=== PATIENT | male | born 1965 | race Caucasian/White ===

== ENCOUNTER 2017-05-23 16:03 | Emergency (ER) | payer OTHER ==
[~2017-05-23] VITALS: Ht 193 cm; Wt 133.5 kg
[~2017-05-23 16:03] MED LIST: FENO145T26 PO; METH-307 PO; METO100T14 PO; OXYC-57 PO
[2017-05-23 16:10] VITALS: TEMP 37; Ht 193 cm; Wt 133.5 kg
--- NOTE | 2017-05-23 16:32 | EMERGENCY ROOM VISIT NOTE ---
ED Visit Note First contact with patient: 16:20 CHIEF COMPLAINT: Low back pain HISTORY OF PRESENT ILLNESS: This 51-year-old male patient presents to the emergency department via private vehicle accompanied by his complaining of pain in the low back which began yesterday while quickly transitioning out of a chair. The pain was gradual in onset, is now constant and worse with movement. The patient notes the pain as constant in the left low back musculature and a 9/10. The patient has taken [id number] Tylenol and ibuprofen without relief of the pain. He notes shooting pain to his left knee with minimal numbness. There is no weakness of the left leg, numbness or tingling in genital region, bowel or bladder incontinence. There is no abdominal pain. No nausea or vomiting or abdominal pain. No chest pain or shortness of breath. REVIEW OF SYSTEMS: A review of systems was performed with positives and pertinent negatives listed in the history of present illness. All other systems were reviewed and are negative. ALLERGIES: None MEDICATIONS: As noted below PMH: Previous femur fracture SOCIAL HISTORY: patient lives locally and is employed. PHYSICAL EXAM: VITALS: Vitals are noted on the nurse's note and reviewed by myself. Vital signs stable. He is hypertensive, and is to follow-up with his family doctor. GENERAL: 51-year-old male, in no acute distress, nondiaphoretic, well-developed well-nourished. SKIN: The skin was without rashes, erythema, edema, or bruising. HEART: Regular rate and rhythm without murmurs gallops or rubs. LUNGS: Clear to auscultation bilaterally without wheezes, rales or rhonchi. ABDOMEN: Positive bowel sounds x 4. Normal tympanic percussion. Soft, nontender, without masses or organomegaly. Stout sign negative. MUSCULOSKELETAL: No muscle atrophy, erythema, or edema noted of the back. There is [] tenderness over the lumbar spinous processes. There is positive tenderness over the paraspinous muscles of the inferior left lumbar spine. There is no tenderness over the thoracic spine or paraspinous muscles. There are positive muscle spasms present. The patient is slow to move around with maximum tenderness with left inferior lumbar paraspinous musculature. Negative straight leg raise test. NEURO: Patient was alert and oriented to person place and time. Normal sensation to light and sharp touch. Deep tendon reflexes 2+ in the lower extremities. Dorsalis pedis pulse 2+ bilaterally. Strength 5/5 and equal in the bilateral lower extremities. EMERGENCY DEPARTMENT COURSE: Patient was seen and evaluated as above. He presents to us today with left inferior paraspinous musculature spasm, there is reproducible with palpation. There is no evidence of neurovascular deficit. There is no abdominal pain, fevers, chest pain or shortness of breath. He is otherwise healthy. His blood pressure was elevated, which I believe be situational secondary to pain. He is to follow-up with his family doctor regarding this. This time he appears stable for outpatient management, with a muscle relaxer and short course of pain medicine. But versus risk of obtaining radiograph was discussed, at this time I do not believe would be beneficial. There is no bony tenderness. No trauma or injury. They were educated upon importance of follow-up, were educated upon worrisome symptoms which to return, had similar discharge, and were discharged home in good condition. In the treatment of this patient controlled medication was utilized and therefore the [facility], Prescription Drug Monitoring Program website was utilized to look up this patient. No concerns were identified that would prohibit or alter my treatment decision. In evaluation treatment this patient following differential diagnoses were entertained: Lumbar strain, fracture, sciatica, piriformis syndrome, cauda equina syndrome, abdominal etiologies, among others. Current/Historical Medications Scheduled Amlodipine (Norvasc), 10 MG PO DAILY Cyclobenzaprine Hcl (Flexeril), 10 MG PO DIRECTED Hydrochlorothiazide (Hctz), 25 MG PO DAILY Lisinopril (Zestril), 40 MG PO DAILY Scheduled PRN Ibuprofen (Advil), 800 MG PO BID PRN for Pain Oxycodone Ir (Roxicodone Ir), 1-2 TAB PO Q4H PRN for Pain Allergies Coded Allergies: No Known Drug Allergy (Verified Allergy, Unknown, `, 07/17/15) Vital Signs Date Time Temp Pulse Resp B/P (MAP) Pulse Ox O2 Delivery O2 Flow Rate FiO2 05/23/17 16:10 37.0 77 18 186/105 94 Room Air Departure Information Impression Primary Impression: Strain of lumbar region Dispostion Home / Self-Care Condition GOOD Prescriptions Oxycodone Ir (Roxicodone Ir) 5 Mg Tab 1-2 TAB PO Q4H Y for Pain, #18 TAB For Initial Treatment Prov: Jerson Kent PA-C 05/23/17 Cyclobenzaprine Hcl (FLEXERIL) 10 Mg Tab 10 MG PO DIRECTED, #15 TAB 1-3 tablets daily. Please do not exceed 3 tablets in a 24 hour period. Prov: Jerson Kent PA-C 05/23/17 Referrals Prakash Phipps M.D. (PCP) Patient Instructions [facility] Additional Instructions You have been treated in the Emergency Department for Back Pain. You have been prescribed Oxy IR to be used for pain control. This is a narcotic medication. You cannot drive or consume alcohol while on this medicine. This medicine should only be used for pain that cannot be controlled with over-the- counter pain medicines. You have been prescribed Flexeril (cyclobenzaprine) 1 tabs orally, three times per day. Do NOT exceed 30 mg (3 tabs) per day. Take your first dose at bedtime as it can make you drowsy. Always take all medications as prescribed. For pain control, you can use the following [id number] medicines (if >12 yo): - Regular strength (325mg/tab) Tylenol (acetaminophen) 2 tabs every 4-6 hours as needed. Do not exceed 12 tablets in a 24 hour period. Avoid taking more than 3 grams (000 mg) of Tylenol per day. This includes any other sources of acetaminophen you may take on a regular basis. - Regular strength (200 mg/tab) Advil (ibuprofen) 1-2 tabs every 4-6 hours as needed. Do not exceed a dose of 3200 mg per day. If this is an acute injury, ice can be applied to the area of pain for the first 3 days to help decrease pain and inflammation. After the first 3 days, a heating pad can be used over the area for continued soothing relief. You should schedule a follow-up appointment in 2-3 days with your Primary Care Provider for further evaluation and treatment of your back pain. Return to the Emergency Department if your current symptoms worsen despite treatment course outlined above, or if you develop any of the following symptoms : intractable pain despite aforementioned treatment course, loss of control of your bowel or bladder, numbness or tingling in your groin, or development of a fever. Please return to the emergency department with any new/concerning symptoms.
[2017-05-23] MEDS ORDERED: LISI40TA PO (16:36)
[2017-05-23] MEDS ORDERED: HYDR25TA4 PO (16:36)
[2017-05-23] MEDS ORDERED: IBUP-1050 PO (16:36)
[2017-05-23] MEDS ORDERED: AMLO-114 PO (16:36)
[2017-05-23] MEDS ORDERED: CYCL10TA6 PO (16:41)
[2017-05-23] MEDS ORDERED: OXYC1TAB3 PO (16:41)
[2017-05-23 16:50] VITALS: BP 174/87; PULSE 78; O2SAT 98
== END 2017-05-23 16:50 | disposition home or self-care (01) ==
LOC: C.EDB 16:05 → C.EDD 16:50
DX: S39.012A Strain of muscle, fascia and tendon of lower back, initial encounter (principal); X50.9XXA Other and unspecified overexertion or strenuous movements or postures, initial encounter